=== PATIENT | male | born 1960 | race Hispanic/Latino ===

== ENCOUNTER 2016-10-30 14:47 | Emergency (ER) | payer BC ==
[2016-10-30 15:04] VITALS: O2SAT 95
--- NOTE | 2016-10-30 16:11 | C.PDOC ---
History Of Present Illness 56 y/o male with hx of Heroin abuse brought to ED by family after being found lethargic high from heroin and was brought for evaluation. As per family patient went into bathroom and was there for a long time and when entering bathroom patient was on floor. Patient was admitted 1 week ago for detox and signed AMA 5 days later and admits to consuming 3 bags of heroin daily. Family brought patient to ED for possible entrance to detox program. No beds are available and no physical complaints at this time. Time Seen by Provider: 10/30/16 15:23 Chief Complaint (Nursing): Substance Abuse History Per: Patient, Family History/Exam Limitations: no limitations Onset/Duration Of Symptoms: Days Current Symptoms Are (Timing): Still Present Suicide/Self Injury Attempted (Context): None Past Medical History Reviewed: Historical Data, Nursing Documentation, Vital Signs Vital Signs: Last Vital Signs Temp 98.0 F 10/30/16 16:16 Pulse 78 10/30/16 16:16 Resp 18 10/30/16 16:16 BP 111/69 10/30/16 16:16 Pulse Ox 95 10/30/16 16:16 - [facility] Procedures CLOSE RED-HUMERUS EPIPHY (01/08/13) GROUP PSYCHOTHERAPY (02/09/15) INDIVIDUAL PSYCHOTHERAPY, BEHAVIORAL (02/09/15) REPAIR LEFT LOWER ARM SKIN, EXTERNAL APPROACH (02/09/15) Family History: States: No Known Family Hx - Social History Hx Alcohol Use: No Hx Substance Use: Yes Review Of Systems Except As Marked, All Systems Reviewed And Found Negative. Constitutional: Negative for: Fever, Chills Gastrointestinal: Negative for: Nausea, Vomiting Skin: Negative for: Rash Neurological: Negative for: Weakness, Numbness Psych: Negative for: Anxiety, Depression Physical Exam - Physical Exam Appears: Other (Lethargic) Skin: Normal Color, Warm, No Rash Head: Atraumatic Eye(s): bilateral: Normal Inspection, PERRL, EOMI Oral Mucosa: Moist Neck: Supple Chest: Symmetrical Cardiovascular: Rhythm Regular Respiratory: Normal Breath Sounds, No Rales, No Rhonchi, No Wheezing Gastrointestinal/Abdominal: Soft, No Tenderness, No Guarding, No Rebound Neurological/Psych: Oriented x3 ED Course And Treatment O2 Sat by Pulse Oximetry: 95 (RA) Pulse Ox Interpretation: Normal Disposition - Disposition Referrals: [facility] [Outside] Disposition: HOME/ ROUTINE Disposition Time: 16:10 Condition: STABLE Instructions: Narcotic Abuse (ED) Forms: [facility] [facility] ([place]) - Clinical Impression Clinical Impression: Drug dependence - Scribe Statement The provider has reviewed the documentation as recorded by the Chanceibjay Shipley All medical record entries made by the Scribe were at my direction and personally dictated by me. I have reviewed the chart and agree that the record accurately reflects my personal performance of the history, physical exam, medical decision making, and the department course for this patient. I have also personally directed, reviewed, and agree with the discharge instructions and disposition.
[2016-10-30 16:18] VITALS: BP 111/69; PULSE 78; RESP 18; TEMP 98
== END 2016-10-30 16:18 | disposition home or self-care (01) ==
LOC: C.ER 14:47
DX: F11.20 Opioid dependence, uncomplicated (principal)